=== PATIENT | male | born 1960 | race Caucasian/White ===

== ENCOUNTER 2020-05-21 14:40 | Emergency (ER) | payer OTHER, SELFPAY ==
--- NOTE | ~2020-05-21 | XR_ITS ---
XR knee RT 3V 05/21/2020 16:08 INDICATION: Right knee pain after fall PROCEDURE: 3 views right knee COMPARISON: No prior studies for comparison. FINDINGS: Fracture, dislocation or subluxation is not identified. No significant joint effusion. The soft tissues appear within normal limits. No foreign bodies are identified. IMPRESSION: 1: NO ACUTE BONE OR JOINT ABNORMALITY IDENTIFIED. Reviewed, dictated and finalized at location A. ODUCTIVE SURGEON
[2020-05-21 15:24] VITALS: BP 102/63; PULSE 80; RESP 16; TEMP 36.1; O2SAT 96
--- NOTE | 2020-05-21 16:55 | ED.LOWEXIN ---
HPI - Extremity Injury (Lower) General Chief Complaint: Extremity Injury, Lower Stated Complaint: right knee pain Time Seen by Provider: 05/21/20 16:15 Source: patient Mode of arrival: wheelchair Limitations: no limitations History of Present Illness HPI Narrative: This is a 59 year old male that presents to the ER for right knee pain after an injury today. Reports he was transferring from one ladder to another and fell. Reports landing on top of the ladder. Reports he thinks he fell about 6 feet. Denies hitting his head or loss of consciousness. Reports since he has had right knee pain. Denies other injuries, prodromal symptoms, vision changes, vomiting, weakness, or numbness. Review of Systems Review of Systems: Narrative: CONSTITUTIONAL: Denies fever EYES: Denies visual changes GASTROINTESTINAL: Denies vomiting MUSCULOSKELETAL: Reports joint pain and myalgia. Denies back pain NEUROLOGIC: Denies headache, numbness, or weakness. All systems reviewed & are unremarkable except as noted in HPI and below PMFSH Past Medical History Medical History (Updated 05/21/20 @ 17:04 by Magda Yen PA-C) No active medical problems Social History Social History (Updated 05/21/20 @ 17:02 by Magda Yen PA-C) Substance use: never Exam Narrative: Exam Narrative: GENERAL: Well-appearing, well-nourished, and in no acute distress. HEAD: Normocephalic, atraumatic. EYES: PERRLA and EOMI. ENT: Nares clear, no rhinorrhea or epistaxis. Mucous membranes moist. Oropharynx without tonsillar hypertrophy exudate or other lesions. Bilateral TMs pearly palomino non-bulging NECK: Supple. No adenopathy or masses. No midline cervical spine tenderness CHEST: Clear to auscultation. No respiratory distress. No wheezes rales or rhonchi HEART: Regular rate and rhythm. No murmur heard. Normal peripheral pulses. BACK: No midline thoracic or lumbar spine tenderness EXTREMITIES: Normal range of motion. No edema or obvious deformity. Strength equal in bilateral upper and lower extremities (5/5) SKIN: Warm, dry, no rash. NEURO: No focal deficits. Alert and oriented x3. Cranial nerves II through XII grossly intact. Normal gait PSYCH: Normal mood and affect Course Vital Signs Vital signs: Vital Signs Temperature 97 F L 05/21/20 15:24 Pulse Rate 80 05/21/20 15:24 Respiratory Rate 16 05/21/20 15:24 Blood Pressure 102/63 05/21/20 15:24 Pulse Oximetry 96 05/21/20 15:24 Temperature 97 F L 05/21/20 15:24 Pulse Rate 80 05/21/20 15:24 Respiratory Rate 16 05/21/20 15:24 Blood Pressure 102/63 05/21/20 15:24 Pulse Oximetry 96 05/21/20 15:24 MDM - Extremity Injury (Lower) MDM Narrative Medical decision making narrative: Patient presents the emergency department right knee pain after a fall from height today. He is neurologically intact. Denies hitting his head, loss of consciousness, or other injuries. Right knee x-ray is without acute findings. Patient placed in knee immobilizer and given crutches. Will be given orthopedics for follow-up. He is stable and felt appropriate for further outpatient evaluation. He was given warnings to return to the ER Imaging Data Radiologist's impression: ITS Impressions Knee X-Ray 05/21/20 16:14 IMPRESSION: 1: NO ACUTE BONE OR JOINT ABNORMALITY IDENTIFIED. Critical Care Time Critical Care Time Critical Care Time: No Discharge Plan Discharge Clinical Impression: Right knee sprain Qualifiers: Encounter type: initial encounter Involved ligament of knee: unspecified ligament Qualified Code(s): S83.91XA - Sprain of unspecified site of right knee, initial encounter Patient Disposition: Home, Self-Care Condition: Stable Instructions: Knee Sprain (ED) Additional Instructions: Return to the emergency department if you experience fever, vision changes, vomiting, sudden onset numbness or weakness, redness and swelling of your leg or any other symptoms that are c
[2020-05-21 17:47] VITALS: BP 115/65; PULSE 70; RESP 18; O2SAT 100
== END 2020-05-21 17:48 | disposition home or self-care (01) ==
PROVIDERS: Emergency Provider Emergency Medicine; Referring Provider Emergency Medicine
DX: S83.91XA Sprain of unspecified site of right knee, initial encounter (principal); W11.XXXA Fall on and from ladder, initial encounter
CPT/HCPCS: 73562; 99283